=== PATIENT | female | born 1995 | race African-American/Black ===

== ENCOUNTER 2018-08-10 18:59 | Emergency (ER) | payer BC, OTHER ==
[~2018-08-10] VITALS: Ht 160 cm; Wt 107.0 kg
--- NOTE | 2018-08-10 19:21 | ED Abdominal Pain ---
General Chief Complaint: Head/Cervical Problems Stated Complaint: FATIGUE, ABD PAIN, BACK PAIN, NAUSEA, HEADACHE Source of Information: Patient, Family, RN Notes Reviewed Exam Limitations: No Limitations History of Present Illness Date Seen by Provider: Aug 10, 2018 Time Seen by Provider: 19:20 Initial Comments Patient presents c/ several complaints including SALDAÑA, nausea, low back pain, and fatigue x 2 months. Reportedly seen in an UC yesterday and had a UA and UCG checked that were both negative. States she has been thirsty and urinating a lot. No known fever. ? F.H. of DM on father's side. Timing/Duration: Other (2 months now) Severity/Quality: Moderate, Aching Location: Other (lower back) Radiation: No Radiation Activities at Onset: Other (unknown) Modifying Factors: Improves With Other (none) Associated Symptoms: Fatigue, Other (nausea; SALDAÑA) Allergies and Home Medications Allergies Coded Allergies: No Known Drug Allergies (Unverified , 08/10/18) Patient Home Medication List Home Medication List Reviewed: Yes Review of Systems Review of Systems Constitutional: see HPI, malaise Gastrointestinal: See HPI, Nausea Musculoskeletal: see HPI, back pain (lower) Psychiatric/Neurological: See HPI, Headache Endocrine: See HPI, Increased Thrist, Increased Urine All Other Systems Reviewed Negative Unless Noted: Yes Past Wwnhqbt-Fwkvig-Catnmp Hx Patient Social History Recent Foreign Travel: No Contact w/Someone Who Travel: No Physical Exam Vital Signs Vital Signs - First Documented 08/10/18 19:15 Temp 98.6 Pulse 93 Resp 14 B/P (MAP) 135/65 (88) Pulse Ox 100 O2 Delivery Room Air Capillary Refill : Height/Weight/BMI Height: '" Weight: lbs. oz. kg; BMI Method: General Appearance: WD/WN, no apparent distress, obese Respiratory: no respiratory distress Cardiovascular: regular rate, rhythm Rectal: deferred Neurologic/Psychiatric: alert, normal mood/affect, oriented x 3 Skin: warm/dry Progress/Results/Core Measures Results/Orders Lab Results Laboratory Tests Test 08/10/18 19:30 08/10/18 19:35 Range/Units White Blood Count 11.0 4.3-11.0 10^3/uL Red Blood Count 4.13 L 4.35-5.85 10^6/uL Hemoglobin 10.5 L 11.5-16.0 G/DL Hematocrit 34 L 35-52 % Mean Corpuscular Volume 82 80-99 FL Mean Corpuscular Hemoglobin 25 25-34 PG Mean Corpuscular Hemoglobin Concent 31 L 32-36 G/DL Red Cell Distribution Width 14.0 10.0-14.5 % Platelet Count 337 130-400 10^3/uL Mean Platelet Volume 8.3 7.4-10.4 FL Neutrophils (%) (Auto) 68 42-75 % Lymphocytes (%) (Auto) 26 12-44 % Monocytes (%) (Auto) 6 0-12 % Eosinophils (%) (Auto) 0 0-10 % Basophils (%) (Auto) 0 0-10 % Neutrophils # (Auto) 7.5 1.8-7.8 X 10^3 Lymphocytes # (Auto) 2.8 1.0-4.0 X 10^3 Monocytes # (Auto) 0.6 0.0-1.0 X 10^3 Eosinophils # (Auto) 0.0 0.0-0.3 10^3/uL Basophils # (Auto) 0.0 0.0-0.1 10^3/uL Sodium Level 144 135-145 MMOL/L Potassium Level 3.3 L 3.6-5.0 MMOL/L Chloride Level 107 98-107 MMOL/L Carbon Dioxide Level 23 21-32 MMOL/L Anion Gap 14 5-14 MMOL/L Blood Urea Nitrogen 16 7-18 MG/DL Creatinine 0.87 0.60-1.30 MG/DL Estimat Glomerular Filtration Rate > 60 BUN/Creatinine Ratio 18 Glucose Level 121 H 70-105 MG/DL Calcium Level 9.2 8.5-10.1 MG/DL Corrected Calcium 9.3 8.5-10.1 MG/DL Total Bilirubin 0.4 0.1-1.0 MG/DL Aspartate Amino Transf (AST/SGOT) 14 5-34 U/L Alanine Aminotransferase (ALT/SGPT) 9 0-55 U/L Alkaline Phosphatase 52 40-136 U/L Total Protein 7.2 6.4-8.2 GM/DL Albumin 3.9 3.2-4.5 GM/DL Lipase 27 8-78 U/L Urine Color YELLOW Urine Clarity CLOUDY H Urine pH 6.0 5-9 Urine Specific Ashby >=1.030 1.016-1.022 Urine Protein NEGATIVE NEGATIVE Urine Glucose (UA) NEGATIVE NEGATIVE Urine Ketones TRACE H NEGATIVE Urine Nitrite NEGATIVE NEGATIVE Urine Bilirubin NEGATIVE NEGATIVE Urine Urobilinogen 0.2 NORMAL MG/DL Urine Leukocyte Esterase NEGATIVE NEGATIVE Urine RBC (Auto) 1+ H NEGATIVE Urine RBC 0-2 /HPF Urine WBC NONE /HPF Urine Squamous Epithelial Cells RARE /HPF Urine Crystals NA /LPF Urine Amorphous Sediment LARGE TONY URATES H /LPF Urine Bacteria NEGATIVE /HPF Urine Casts NONE /LPF Urine Mucus NEGATIVE /LPF Urine Culture Indicated NO Urine Test NEGATIVE NEGATIVE My Orders Orders - MICK HANEY DO Cbc With Automated Diff (08/10/18 19:25) Comprehensive Metabolic Panel (08/10/18 19:25) Ua Culture If Indicated (08/10/18 19:25) Lipase (08/10/18 19:31) Hcg,Qualitative Urine (08/10/18 19:31) Thyroid Stimulating Hormone (08/10/18 19:30) Ua Culture If Indicated (08/10/18 20:47) Ct Abd/Pelvis Wo(Kidney Stone) (08/10/18 21:05) Hemoglobin A1c (08/10/18 21:29) Potassium Chloride (Tablet) (K Dur Table (08/10/18 22:00) Magnesium Citrate Oral Soln (Citrate Of (08/10/18 22:15) Medications Given in ED Current Medications Medications Dose Ordered Sig/Rhea Route Start Time Stop Time Status Last Admin Dose Admin Magnesium Citrate 300 ml ONCE ONCE PO 08/10/18 22:15 08/10/18 22:16 DC 08/10/18 22:12 300 ML Potassium Chloride 40 meq ONCE ONCE PO 08/10/18 22:00 08/10/18 22:01 DC 08/10/18 22:12 40 MEQ Vital Signs/I&O 08/10/18 08/10/18 19:15 22:17 Temp 98.6 Pulse 93 90 Resp 14 15 B/P (MAP) 135/65 (88) 128/62 (84) Pulse Ox 100 98 O2 Delivery Room Air Room Air Departure Impression Primary Impression: Headache Additional Impressions: Fatigue Anemia Hyperglycemia Hypokalemia Constipation Disposition: 01 HOME, SELF-CARE Condition: Stable Departure-Patient Inst. Decision time for Depature: 21:54 Referrals: NO,LOCAL PHYSICIAN (PCP) Primary Care Physician Patient Instructions: Anemia Caused by Low Iron, Adult (DC), Prediabetes (DC), Fatigue, Hypokalemia Add. Discharge Instructions: All discharge instructions reviewed with patient and/or family. Voiced understanding. KEEP PCP APPOINTMENT FOR TUESDAY. HAVE THEM CHECK YOUR YOU HEMOGLOBULIN A1C AND TSH RESULTS. BEGIN IRON EVERY OTHER DAY. NEED TO DRINK A LOT MORE WATER. MICK HANEY DO Aug 10, 2018 19:21
[2018-08-10 19:45] LABS: BASOPHILS % (AUTO) 0 % (0-10); EOSINOPHILS % (AUTO) 0 % (0-10); HEMATOCRIT 34 % (35-52); HEMOGLOBIN 10.5 G/DL (11.5-16.0); LYMPHOCYTES % (AUTO) 26 % (12-44); MEAN CORPUSCULAR HEMOGLOBIN 25 PG (25-34); MEAN CORPUSCULAR HGB CONC 31 G/DL (32-36); MEAN CORPUSCULAR VOLUME 82 FL (80-99); MEAN PLATELET VOLUME 8.3 FL (7.4-10.4); MONOCYTES % (AUTO) 6 % (0-12); NEUTROPHILS # (AUTO) 7.5 X 10^3 (1.8-7.8); NEUTROPHILS % (AUTO) 68 % (42-75); PLATELET COUNT 337 10^3/uL (130-400)
[2018-08-10 19:46] LABS: LYMPHOCYTES # (AUTO) 2.8 X 10^3 (1.0-4.0); MONOCYTES # (AUTO) 0.6 X 10^3 (0.0-1.0)
[2018-08-10 20:07] LABS: SODIUM 144 MMOL/L (135-145)
[2018-08-10 20:08] LABS: ALANINE AMINOTRANSFERASE 9 U/L (0-55); ALBUMIN 3.9 GM/DL (3.2-4.5); ALKALINE PHOSPHATASE 52 U/L (40-136); BILIRUBIN,TOTAL 0.4 MG/DL (0.1-1.0); BUN/CREATININE RATIO 18; CALCIUM 9.2 MG/DL (8.5-10.1); CARBON DIOXIDE 23 MMOL/L (21-32); CHLORIDE 107 MMOL/L (98-107); CREATININE SERUM 0.87 MG/DL (0.60-1.30); GFR ESTIMATED > 60; GLUCOSE 121 MG/DL (70-105); POTASSIUM 3.3 MMOL/L (3.6-5.0); TOTAL PROTEIN 7.2 GM/DL (6.4-8.2)
[2018-08-10 20:09] LABS: LIPASE 27 U/L (8-78)
--- OUTSIDE RECORDS SUMMARY | 2018-08-10 20:26 | XMS REPORT ---
Author Author SHILPA EMY Organization [facility] Address [address] [place] [address] Care Team Providers Care Nursing [facility] Tutor Name Role Phone EMY MASSEY Unavailable PROBLEMS Type Condition ICD9-CM Code [id number] Code Onset Dates Condition Status SNOMED Code Problem Prediabetes R73.09 Active 107767371 Problem Anxiety F41.9 Active 81946438 Problem Gastroesophageal reflux disease with esophagitis K21.0 Active 808475464 Problem Urticaria L50.9 Active 606737052 Problem Morbid (severe) obesity due to excess calories E66.01 Active 255919753 Problem Iron deficiency anemia, unspecified iron deficiency anemia type D50.9 Active 80728509 Problem Routine health maintenance Z00.00 Active 003229561 ALLERGIES No Known Allergies SOCIAL HISTORY Never Assessed PLAN OF CARE Activity Details Follow Up 4 Weeks Reason:weight management VITAL SIGNS Height 5'3" in 2016-09-17 Weight 246.6 lbs 2016-09-17 Temperature 97.7 degrees Fahrenheit 2016-09-17 Heart Rate 82 bpm 2016-09-17 Respiratory Rate 20 2016-09-17 BMI 43.68 kg/m2 2016-09-17 Blood pressure systolic 121 mmHg 2016-09-17 Blood pressure diastolic 77 mmHg 2016-09-17 MEDICATIONS Medication Instructions Dosage Frequency Start Date End Date Duration Status Vistaril 50 mg Orally Once a day at bedtime 1 capsule August, 30 days Active Diethylpropion HCl ER 75 MG Orally Once a day 1 tablet 24h August, Sep, 30 days Active Ferrous Sulfate 325 (65 Fe) MG Orally twice a day 1 tablet 12h August, Active Ibuprofen 200 MG Orally every 6 hrs 1 tablet as needed 6h Active Esomeprazole Magnesium 20 MG Orally Once a day 1 capsule 24h August, 30 day(s) Active RESULTS No Results PROCEDURES No Known procedures IMMUNIZATIONS No Known Immunizations
--- OUTSIDE RECORDS SUMMARY | 2018-08-10 20:26 | XMS REPORT ---
Author Author SHILPACHUYEMY Organization [facility] Address [address] [place] [address] Care Team Providers Care Drywall Installer Name Role Phone EMY MASSEY Unavailable PROBLEMS Type Condition ICD9-CM Code [id number] Code Onset Dates Condition Status SNOMED Code Problem Morbid (severe) obesity due to excess calories E66.01 Active 239268199 Problem Prediabetes R73.09 Active 800434675 Problem Seasonal allergic rhinitis due to pollen J30.1 Active 97949499 Problem Anxiety F41.9 Active 22056944 Problem Routine health maintenance Z00.00 Active 655926169 Problem Urticaria L50.9 Active 706150532 Problem Gastroesophageal reflux disease with esophagitis K21.0 Active 518078468 Problem Iron deficiency anemia, unspecified iron deficiency anemia type D50.9 Active 98522050 ALLERGIES No Information ENCOUNTERS Encounter Location Date Diagnosis [place] [id number] [place] [address] Jun, [facility] [id number] [place] [address]06- 655[address] Jun, [facility] [id number] [place] [address] 77057- 8677 Jun, [facility] [id number] [place] [address] 68363- 8666 Jun, [facility] [id number] [place] [address] 86766- 3931 Jun, Gastroesophageal reflux disease with esophagitis K21.0 ; BMI 40.0-44.9, adult Z68.41 ; Urticaria L50.9 and Seasonal allergic rhinitis due to pollen J30.1 [facility] [id number] [place] [address] 81541- 1185 Jun, [place] [id number], [place] [address] Sep, Morbid (severe) obesity due to excess calories E66.01 and Anxiety F41.9 [place] [address], [place] [address] August, Gastroesophageal reflux disease with esophagitis K21.0 ; Urticaria L50.9 and Morbid (severe) obesity due to excess calories E66.01 [place] [address], [place] [address] Jul, Routine health maintenance Z00.00 ; Prediabetes R73.09 ; Iron deficiency anemia, unspecified iron deficiency anemia type D50.9 and Morbid (severe) obesity due to excess calories E66.01 [place] [address], [place] [address] August, Prediabetes R73.09 ; Routine health maintenance Z00.00 ; Body mass index (BMI) of 45.0-49.9 in adult Z68.42 ; Morbid (severe) obesity due to excess calories E66.01 ; Iron deficiency anemia, unspecified iron deficiency anemia type D50.9 and Urticaria L50.9 [place] [address], [place] [address] August, Fatigue R53.[address] [place] [address]- [address] August, Fatigue R53.83 IMMUNIZATIONS No Known Immunizations SOCIAL HISTORY Never Assessed REASON FOR VISIT Lab results PLAN OF CARE VITAL SIGNS MEDICATIONS Unknown Medications RESULTS No Results PROCEDURES No Known procedures INSTRUCTIONS MEDICATIONS ADMINISTERED No Known Medications
--- OUTSIDE RECORDS SUMMARY | 2018-08-10 20:26 | XMS REPORT ---
Author Author SHILPACHUYEMY Organization [facility] Address [address] [place] [address] Care Team Providers Care Mine Wirer Name Role Phone EMY MASSEY Unavailable PROBLEMS Type Condition ICD9-CM Code [id number] Code Onset Dates Condition Status SNOMED Code Problem Morbid (severe) obesity due to excess calories E66.01 Active 653096297 Problem Prediabetes R73.09 Active 131961693 Problem Seasonal allergic rhinitis due to pollen J30.1 Active 72056600 Problem Anxiety F41.9 Active 80129112 Problem Routine health maintenance Z00.00 Active 546079896 Problem Urticaria L50.9 Active 631936905 Problem Gastroesophageal reflux disease with esophagitis K21.0 Active 935299091 Problem Iron deficiency anemia, unspecified iron deficiency anemia type D50.9 Active 15240193 ALLERGIES No Information ENCOUNTERS Encounter Location Date Diagnosis [place] [id number] [place] [address]199- [address] Jun, [facility] [id number] [place] [address] 00064- 2104 Jun, [facility] [id number] [place] [address] 18923- 3437 Jun, [facility] [id number] [place] [address] 32120- 5859 Jun, [facility] [id number] [place] [address] 23795- 7829 Jun, Gastroesophageal reflux disease with esophagitis K21.0 ; BMI 40.0-44.9, adult Z68.41 ; Urticaria L50.9 and Seasonal allergic rhinitis due to pollen J30.1 [facility] [id number] [place] [address] 18552- [address] Jun, [place] [id number] [address] Sep, Morbid (severe) obesity due to excess calories E66.01 and Anxiety F41.9 [place] [address], [place] [address] August, Gastroesophageal reflux disease with esophagitis K21.0 ; Urticaria L50.9 and Morbid (severe) obesity due to excess calories E66.01 [place] [address], [place] [address] Jul, Routine health maintenance Z00.00 ; Prediabetes R73.09 ; Iron deficiency anemia, unspecified iron deficiency anemia type D50.9 and Morbid (severe) obesity due to excess calories E66.01 [place] [address], [place] [address] August, Prediabetes R73.09 ; Routine health maintenance Z00.00 ; Body mass index (BMI) of 45.0-49.9 in adult Z68.42 ; Morbid (severe) obesity due to excess calories E66.01 ; Iron deficiency anemia, unspecified iron deficiency anemia type D50.9 and Urticaria L50.9 [place] [address], [place] [address] August, Fatigue R53.83 [address] [place] [address] 90902- 36[address] August, Fatigue R53.83 IMMUNIZATIONS No Known Immunizations SOCIAL HISTORY Never Assessed REASON FOR VISIT Lab results PLAN OF CARE VITAL SIGNS MEDICATIONS Unknown Medications RESULTS No Results PROCEDURES No Known procedures INSTRUCTIONS MEDICATIONS ADMINISTERED No Known Medications
--- OUTSIDE RECORDS SUMMARY | 2018-08-10 20:26 | XMS REPORT ---
Author Author SHILPACHUYEMY Organization [facility] Address [address] [place] [address] Care Team Providers Care Goodyear Stitcher Name Role Phone EMY MASSEY Unavailable PROBLEMS Type Condition ICD9-CM Code GGH87-[id number] Code Onset Dates Condition Status SNOMED Code Problem Morbid (severe) obesity due to excess calories E66.01 Active 041539196 Problem Prediabetes R73.09 Active 174098343 Problem Seasonal allergic rhinitis due to pollen J30.1 Active 93211355 Problem Anxiety F41.9 Active 47307480 Problem Routine health maintenance Z00.00 Active 107479977 Problem Urticaria L50.9 Active 502548506 Problem Gastroesophageal reflux disease with esophagitis K21.0 Active 626857674 Problem Iron deficiency anemia, unspecified iron deficiency anemia type D50.9 Active 89476013 ALLERGIES No Information ENCOUNTERS Encounter Location Date Diagnosis [place] [id number] [place] [address]859- 47[address] Jun, [facility] [id number] [place] [address] 41508- 3804 Jun, [facility] [id number] [place] [address] 88606- 3996 Jun, [facility] [id number] [place] [address] 00901- 1909 Jun, [facility] [id number] [place] [address] 03863- 8330 Jun, Gastroesophageal reflux disease with esophagitis K21.0 ; BMI 40.0-44.9, adult Z68.41 ; Urticaria L50.9 and Seasonal allergic rhinitis due to pollen J30.1 [facility] [id number] [place] [address] 26311- 0361 Jun, [place] [id number], [place] [address] Sep, Morbid (severe) obesity due to excess calories E66.01 and Anxiety F41.9 [place] [address], [place] [address] August, Gastroesophageal reflux disease with esophagitis K21.0 ; Urticaria L50.9 and Morbid (severe) obesity due to excess calories E66.01 [place] [address], [place] [address] Jul, Routine health maintenance Z00.00 ; Prediabetes R73.09 ; Iron deficiency anemia, unspecified iron deficiency anemia type D50.9 and Morbid (severe) obesity due to excess calories E66.01 [place] [address], [place] [address] August, Prediabetes R73.09 ; Routine health maintenance Z00.00 ; Body mass index (BMI) of 45.0-49.9 in adult Z68.42 ; Morbid (severe) obesity due to excess calories E66.01 ; Iron deficiency anemia, unspecified iron deficiency anemia type D50.9 and Urticaria L50.9 [place] [address], [place] [address] August, Fatigue R53.83 [address] [place] [address] 81981- 4278 August, Fatigue R53.83 IMMUNIZATIONS No Known Immunizations SOCIAL HISTORY Never Assessed REASON FOR VISIT labs PLAN OF CARE VITAL SIGNS MEDICATIONS Unknown Medications RESULTS No Results PROCEDURES No Known procedures INSTRUCTIONS MEDICATIONS ADMINISTERED No Known Medications
--- OUTSIDE RECORDS SUMMARY | 2018-08-10 20:26 | XMS REPORT | Continuity of Care Document ---
Author Organization Unknown Address Unknown Allergies There is no data. Medications There is no data. Problems There is no data. Procedures There is no data. Results There is no data. Encounters ACCT No. Visit Date/Time Discharge Status Pt. Type Provider Facility Loc./Unit Complaint [id number] 08/09/2018 17:50:00 [facility] Outpatient [facility]
--- OUTSIDE RECORDS SUMMARY | 2018-08-10 20:26 | XMS REPORT ---
Author Author SHILPACHUYEMY Organization [facility] Address [address] [place] [address] Care Team Providers Care Evs Manager Name Role Phone EMY MASSEY Unavailable PROBLEMS Type Condition ICD9-CM Code UFG37-GM Code Onset Dates Condition Status SNOMED Code Problem Morbid (severe) obesity due to excess calories E66.01 Active 311057070 Problem Prediabetes R73.09 Active 588558001 Problem Seasonal allergic rhinitis due to pollen J30.1 Active 42655974 Problem Anxiety F41.9 Active 36373638 Problem Routine health maintenance Z00.00 Active 606131498 Problem Urticaria L50.9 Active 284018082 Problem Gastroesophageal reflux disease with esophagitis K21.0 Active 628337386 Problem Iron deficiency anemia, unspecified iron deficiency anemia type D50.9 Active 96082516 ALLERGIES No Information ENCOUNTERS Encounter Location Date Diagnosis [place] [id number] [place] [address]- 1305 Jun, [facility] [id number] [place] [address] 93034- 6550 Jun, [facility] [id number] [place] [address] 60317- 9370 Jun, [facility] [id number] [place] [address] 79652- 7478 Jun, [facility] [id number] [place] [address] 47949- 3838 Jun, Gastroesophageal reflux disease with esophagitis K21.0 ; BMI 40.0-44.9, adult Z68.41 ; Urticaria L50.9 and Seasonal allergic rhinitis due to pollen J30.1 [facility] [id number] [place] [address] 26814- 5200 Jun, [place] [id number], [place] [address] Sep, Morbid (severe) obesity due to excess calories E66.01 and Anxiety F41.9 [place] [address], [place] [address] August, Gastroesophageal reflux disease with esophagitis K21.0 ; Urticaria L50.9 and Morbid (severe) obesity due to excess calories E66.01 [place] [address], [place] [address] Jul, Routine health maintenance Z00.00 ; Prediabetes R73.09 ; Iron deficiency anemia, unspecified iron deficiency anemia type D50.9 and Morbid (severe) obesity due to excess calories E66.01 [place] [address], [place] [address] 8697 August, Prediabetes R73.09 ; Routine health maintenance Z00.00 ; Body mass index (BMI) of 45.0-49.9 in adult Z68.42 ; Morbid (severe) obesity due to excess calories E66.01 ; Iron deficiency anemia, unspecified iron deficiency anemia type D50.9 and Urticaria L50.9 [place] [address], [place] [address]- [address] August, Fatigue R53.83 [address] [place] [address] 02187- 1727 August, Fatigue R53.83 IMMUNIZATIONS No Known Immunizations SOCIAL HISTORY Never Assessed REASON FOR VISIT Lab results PLAN OF CARE VITAL SIGNS MEDICATIONS Unknown Medications RESULTS No Results PROCEDURES No Known procedures INSTRUCTIONS MEDICATIONS ADMINISTERED No Known Medications
--- OUTSIDE RECORDS SUMMARY | 2018-08-10 20:26 | XMS REPORT ---
Author Author SHILPACHUYEMY Organization [facility] Address [address] [place] [address] Care Team Providers Care Php Website Developer Name Role Phone EMY MASSEY Unavailable PROBLEMS Type Condition ICD9-CM Code CEM25-LW Code Onset Dates Condition Status SNOMED Code Problem Morbid (severe) obesity due to excess calories E66.01 Active 280957884 Problem Prediabetes R73.09 Active 955315951 Problem Seasonal allergic rhinitis due to pollen J30.1 Active 91368192 Problem Anxiety F41.9 Active 52593103 Problem Routine health maintenance Z00.00 Active 333778576 Problem Urticaria L50.9 Active 840909601 Problem Gastroesophageal reflux disease with esophagitis K21.0 Active 336418828 Problem Iron deficiency anemia, unspecified iron deficiency anemia type D50.9 Active 18342047 ALLERGIES No Known Allergies ENCOUNTERS Encounter Location Date Diagnosis [place] [id number] [address] Jun, [facility] [address] [id number] [place] [phone] Jun, [place] [address] [place] [id number] [place] [phone] Jun, [facility] [id number] [place] [address] Jun, [place] [address] [place] [id number] [place] [address] Jun, Gastroesophageal reflux disease with esophagitis K21.0 ; BMI 40.0-44.9, adult Z68.41 ; Urticaria L50.9 and Seasonal allergic rhinitis due to pollen J30.1 [facility] [address] [address] Jun, [place] [address] [address] Sep, Morbid (severe) obesity due to excess calories E66.01 and Anxiety F41.9 [place] [address] [address] August, Gastroesophageal reflux disease with esophagitis K21.0 ; Urticaria L50.9 and Morbid (severe) obesity due to excess calories E66.01 [place] [address] [address] Jul, Routine health maintenance Z00.00 ; Prediabetes R73.09 ; Iron deficiency anemia, unspecified iron deficiency anemia type D50.9 and Morbid (severe) obesity due to excess calories E66.01 [place] [id number] [place] [address] August, Prediabetes R73.09 ; Routine health maintenance Z00.00 ; Body mass index (BMI) of 45.0-49.9 in adult Z68.42 ; Morbid (severe) obesity due to excess calories E66.01 ; Iron deficiency anemia, unspecified iron deficiency anemia type D50.9 and Urticaria L50.9 [place] [address] [address] August, Fatigue R53.83 [id number] [place] [address] August, Fatigue R53.83 IMMUNIZATIONS No Known Immunizations SOCIAL HISTORY Never Assessed REASON FOR VISIT Weight management. SUMMER [place], Itching to hands bilaterally., Congestion for months. PLAN OF CARE Activity Details Follow Up 3 Months Reason:CHM/GERD VITAL SIGNS Height 5'3" in 2017-07-14 Weight 236 lbs 2017-07-14 Temperature 98.1 degrees Fahrenheit 2017-07-14 Heart Rate 95 bpm 2017-07-14 Respiratory Rate 20 2017-07-14 BMI 41.80 kg/m2 2017-07-14 Blood pressure systolic 112 mmHg 2017-07-14 Blood pressure diastolic 80 mmHg 2017-07-14 MEDICATIONS Medication Instructions Dosage Frequency Start Date End Date Duration Status Ibuprofen 200 MG Orally every 6 hrs 1 tablet as needed 6h Not- Taking Vistaril 50 mg Orally Once a day at bedtime 1 capsule August, 30 days Active Esomeprazole Magnesium 20 MG Orally Once a day 1 capsule 24h August, Active Ferrous Sulfate 325 (65 Fe) MG Orally twice a day 1 tablet 12h August, Active Fluticasone Propionate 50 MCG/ACT Nasally Once a day 1 spray in each nostril 24h Jun, 30 day(s) Active Melatonin 5 MG Orally Once a day 1 tablet at bedtime as needed with food 24h Not-Taking Diethylpropion HCl ER 75 MG Orally Once a day 1 tablet 24h August, 30 days Active Cetirizine HCl 10 mg Orally Once a day 1 tablet 24h Jun, Sep, 90 days Active RESULTS No Results PROCEDURES No Known procedures INSTRUCTIONS MEDICATIONS ADMINISTERED No Known Medications
[2018-08-10 20:51] LABS: BILIRUBIN,URINE NEGATIVE (NEGATIVE); CLARITY,URINE CLOUDY; COLOR,URINE YELLOW; GLUCOSE, URINE (UA) NEGATIVE (NEGATIVE); KETONES,URINE TRACE (NEGATIVE); NITRITE,URINE NEGATIVE (NEGATIVE); PROTEIN,URINE NEGATIVE (NEGATIVE); UROBILINOGEN,URINE 0.2 MG/DL (NORMAL)
[2018-08-10 20:52] LABS: LEUKOCYTE ESTERASE ,URINE NEGATIVE (NEGATIVE)
[2018-08-10 20:54] LABS: BACTERIA,URINE NEGATIVE /HPF; RBC,URINE 0-2 /HPF; SQUAMOUS EPITHELIAL CELL,UR RARE /HPF
[2018-08-10 20:55] LABS: AMORPHOUS SEDIMENT,UR LARGE AMOR URATES /LPF
--- NOTE | 2018-08-10 21:40 | Diagnostic Imaging Report ---
PROCEDURE: CT urinary tract, rule out kidney stone. TECHNIQUE: Multiple contiguous axial images were obtained through the abdomen and pelvis without the use of intravenous contrast. Auto Exposure Controls were utilized during the CT exam to meet ALARA standards for radiation dose reduction. INDICATION: Bilateral flank and pelvic pain with hematuria. The patient had a negative urinalysis earlier today. FINDINGS: The lung bases are clear. Liver, gallbladder, spleen, pancreas, adrenal glands and kidneys appear normal. There is normal appearance of the appendix. Some calcifications are present in the pelvis consistent with phleboliths. Uterus appears unremarkable. A small adnexal cyst is present. There is no free fluid. Colon demonstrates slightly increased stool. No obstruction is present. The stomach is distended with air, food substance and liquids. Small bowel appears normal. No vascular calcifications are present. Osseous structures are normal. IMPRESSION: 1. Stomach is distended with fluid and foodstuff. This could be due to poor gastric motility, recent ingestion or outlet obstruction. 2. Mildly increased stool throughout. 3. No cause for the patient's hematuria is identified. Dictated by: Dictated on workstation # [id number]
[2018-08-10] MEDS ORDERED: BISACODYL 5 MG (DULCOLAX) TABLET PO ONE (22:00)
[2018-08-10] MEDS ORDERED: KCL 20 MEQ TAB (K-DUR) PO ONE (22:00)
[2018-08-10] MEDS ORDERED: MAGNESIUM CITRATE 300 ML BTL PO ONE (22:15)
[2018-08-10] MEDS ORDERED: MILK OF MAGNESIA 400 MG/5 ML 30 ML UDC PO ONE (22:15)
[2018-08-10 22:17] VITALS: BP 128/62
== END 2018-08-10 22:17 | disposition home or self-care (01) ==
LOC: ER FS 19:02
DX: R51 Headache (principal); R53.83 Other fatigue; D64.9 Anemia, unspecified; R73.9 Hyperglycemia, unspecified; E87.6 Hypokalemia; K59.00 Constipation, unspecified
CPT/HCPCS: 36415; 74176; 80053; 81000; 83036; 83690; 84443; 84703; 85025

== ENCOUNTER 2018-11-29 23:10 | Emergency (ER) | payer SELFPAY ==
[~2018-11-29] VITALS: Ht 160 cm; Wt 108.9 kg
--- OUTSIDE RECORDS SUMMARY | 2018-11-29 23:17 | XMS REPORT | Continuity of Care Document ---
Author Organization Unknown Address Unknown Phone Unavailable Allergies There is no data. Medications There is no data. Problems There is no data. Procedures There is no data. Results Test Result Range SUREPATH PAP RFX HPV mRNA E6/E7 - 07/06/18 17:08 CLINICAL INFORMATION: NRG LMP: 06/21/2018 NRG PREV. PAP: NRG PREV. BX: NRG SOURCE: Endocervix NRG STATEMENT OF ADEQUACY: NRG INTERPRETATION/RESULT: NRG NEIGHBORHOOD AIDE: NRG REVIEW NEIGHBORHOOD AIDE: NRG COMMENT NRG Encounters ACCT No. Visit Date/Time Discharge Status Pt. Type Provider Facility Loc./Unit Complaint [id number] 08/14/2018 15:00:00 08/14/2018 23:59:59 CLS Outpatient PHILL LOPEZ L[facility] [id number] 07/06/2018 16:00:00 Document Registration
--- NOTE | 2018-11-29 23:38 | ED Abdominal Pain ---
General Chief Complaint: Abdominal/GI Problems Stated Complaint: ABD PAIN,DIARRHEA Source of Information: Patient Exam Limitations: No Limitations History of Present Illness Date Seen by Provider: Nov 29, 2018 Time Seen by Provider: 23:20 Initial Comments The patient is a pleasant 22-year-old female who presents for evaluation of some abdominal cramping discomfort as well as some diarrhea which started today. She reports that the pain is coming and going and is crampy in nature and nonfocal. She says yesterday she picked some mushrooms and that no one else ate that food. She denies rectal bleeding, hematemesis, back or flank pain, chest pain or shortness of breath, pelvic pain/bleeding/discharge, urinary symptoms, or vomiting. She is alert and oriented 4, calm, appears to be in no distress. She states that between the episodes of the cramping discomfort she feels fine. Upon arrival in the emergency department she states that she feels fine. She denies any past surgical abdominal history. She does report increased flatulence today as well. Timing/Duration: 1 Day Severity/Quality: Moderate Location: Generalized Abdomen Radiation: No Radiation Activities at Onset: None Associated Symptoms: Denies Symptoms Allergies and Home Medications Allergies Coded Allergies: No Known Drug Allergies (Unverified , 08/10/18) Home Medications Dicyclomine HCl 20 Mg Tablet, 20 MG PO Q6H PRN for ABDOMINAL PAIN Prescribed by: AN MCCOY on 11/30/18 0025 Patient Home Medication List Home Medication List Reviewed: Yes Review of Systems Review of Systems Constitutional: no symptoms reported EENTM: No Symptoms Reported Respiratory: No Symptoms Reported Cardiovascular: No Symptoms Reported Gastrointestinal: Abdominal Pain, Diarrhea Genitourinary: No Symptoms Reported Musculoskeletal: no symptoms reported Skin: no symptoms reported Psychiatric/Neurological: No Symptoms Reported Endocrine: No Symptoms Reported Hematologic/Lymphatic: No Symptoms Reported All Other Systems Reviewed Negative Unless Noted: Yes Past [id number]-[id number]-Aoudtv Hx Past Med/Social Hx: Reviewed Nursing Past Med/Soc Hx Patient Social History Alcohol Use: Denies Use Recreational Drug Use: No Smoking Status: Never a Smoker 2nd Hand Smoke Exposure: No Recent Foreign Travel: No Contact w/Someone Who Travel: No Recent Hopitalizations: No Physical Abuse: No Sexual Abuse: No Mistreated: No Seasonal Allergies Seasonal Allergies: No Past Medical History Surgeries: No Respiratory: No Cardiac: No Neurological: No Genitourinary: No Gastrointestinal: No Musculoskeletal: No Endocrine: No HEENT: No Cancer: No Psychosocial: No Integumentary: No Blood Disorders: No Physical Exam Vital Signs Vital Signs - First Documented 11/29/18 23:17 Temp 97.8 Pulse 94 Resp 18 B/P (MAP) 135/82 (99) Pulse Ox 97 O2 Delivery Room Air Capillary Refill : Height/Weight/BMI Height: 5'3.00" Weight: 236lbs. oz. 107.996302bg; BMI Method:Stated General Appearance: WD/WN, no apparent distress (smiling, calm, appears comfortable) HEENT: PERRL/EOMI, pharynx normal Neck: non-tender, full range of motion, supple Respiratory: chest non-tender, lungs clear, normal breath sounds, no accessory muscle use Cardiovascular: regular rate, rhythm, no edema Gastrointestinal: normal bowel sounds, non tender (obese, benign abdominal examination), soft, no organomegaly, no pulsatile mass Extremities: non-tender, no pedal edema, no calf tenderness Back: normal inspection, no CVA tenderness, no vertebral tenderness Neurologic/Psychiatric: 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, no motor/sensory deficits, alert, normal mood/affect, oriented x 3 Skin: normal color, warm/dry Lymphatic: no adenopathy Progress/Results/Core Measures Results/Orders Lab Results Laboratory Tests Test 11/29/18 23:35 11/29/18 23:45 Range/Units White Blood Count 5.8 4.3-11.0 10^3/uL Red Blood Count 4.15 L 4.35-5.85 10^6/uL Hemoglobin 10.7 L 11.5-16.0 G/DL Hematocrit 34 L 35-52 % Mean Corpuscular Volume 83 80-99 FL Mean Corpuscular Hemoglobin 26 25-34 PG Mean Corpuscular Hemoglobin Concent 31 L 32-36 G/DL Red Cell Distribution Width 14.2 10.0-14.5 % Platelet Count 353 130-400 10^3/uL Mean Platelet Volume 8.8 7.4-10.4 FL Neutrophils (%) (Auto) 59 42-75 % Lymphocytes (%) (Auto) 32 12-44 % Monocytes (%) (Auto) 8 0-12 % Eosinophils (%) (Auto) 1 0-10 % Basophils (%) (Auto) 0 0-10 % Neutrophils # (Auto) 3.4 1.8-7.8 X 10^3 Lymphocytes # (Auto) 1.8 1.0-4.0 X 10^3 Monocytes # (Auto) 0.5 0.0-1.0 X 10^3 Eosinophils # (Auto) 0.0 0.0-0.3 10^3/uL Basophils # (Auto) 0.0 0.0-0.1 10^3/uL Sodium Level 138 135-145 MMOL/L Potassium Level 3.6 3.6-5.0 MMOL/L Chloride Level 101 98-107 MMOL/L Carbon Dioxide Level 23 21-32 MMOL/L Anion Gap 14 5-14 MMOL/L Blood Urea Nitrogen 17 7-18 MG/DL Creatinine 0.98 0.60-1.30 MG/DL Estimat Glomerular Filtration Rate > 60 BUN/Creatinine Ratio 17 Glucose Level 93 70-105 MG/DL Calcium Level 8.9 8.5-10.1 MG/DL Corrected Calcium 9.0 8.5-10.1 MG/DL Total Bilirubin 0.4 0.1-1.0 MG/DL Aspartate Amino Transf (AST/SGOT) 17 5-34 U/L Alanine Aminotransferase (ALT/SGPT) 10 0-55 U/L Alkaline Phosphatase 55 40-136 U/L Total Protein 7.3 6.4-8.2 GM/DL Albumin 3.9 3.2-4.5 GM/DL Lipase 30 8-78 U/L Urine Color YELLOW Urine Clarity CLEAR Urine pH 6.5 5-9 Urine Specific [place] 1.020 1.016-1.022 Urine Protein NEGATIVE NEGATIVE Urine Glucose (UA) NEGATIVE NEGATIVE Urine Ketones NEGATIVE NEGATIVE Urine Nitrite NEGATIVE NEGATIVE Urine Bilirubin NEGATIVE NEGATIVE Urine Urobilinogen 0.2 NORMAL MG/DL Urine Leukocyte Esterase NEGATIVE NEGATIVE Urine RBC (Auto) 2+ H NEGATIVE Urine RBC 10-25 H /HPF Urine WBC 0-2 /HPF Urine Squamous Epithelial Cells 5-10 /HPF Urine Crystals NONE /LPF Urine Bacteria TRACE /HPF Urine Casts NONE /LPF Urine Mucus LARGE H /LPF Urine Culture Indicated NO Urine Test NEGATIVE NEGATIVE My Orders Orders - AN MCCOY DO Comprehensive Metabolic Panel (11/29/18 23:31) Lipase (11/29/18 23:31) Ua Culture If Indicated (11/29/18 23:31) Ed Iv/Invasive Line Start (11/29/18 23:31) Cbc With Automated Diff (11/29/18 23:31) Hcg,Qualitative Urine (11/29/18 23:31) Ns Iv 1000 Ml (Sodium Chloride 0.9%) (11/29/18 23:45) Ketorolac Injection (Toradol Injection) (11/29/18 23:45) Dicyclomine Injection (Bentyl Injection) (11/29/18 23:45) Medications Given in ED Current Medications Medications Dose Ordered Sig/Rhea Route Start Time Stop Time Status Last Admin Dose Admin Dicyclomine HCl 20 mg ONCE ONCE IM 11/29/18 23:45 11/29/18 23:46 DC 11/29/18 23:55 20 MG Ketorolac Tromethamine 30 mg ONCE ONCE IVP 11/29/18 23:45 11/29/18 23:46 DC 11/29/18 23:55 30 MG Vital Signs/I&O 11/29/18 23:17 Temp 97.8 Pulse 94 Resp 18 B/P (MAP) 135/82 (99) Pulse Ox 97 O2 Delivery Room Air Progress Progress Note : Progress Note @0025 - patient updated on lab results which are acutely unremarkable. She appears comfortable and continues to have a benign abdominal examination. Advised patient to take the prescribed Bentyl as directed and to follow-up with her PCP in the next 1-2 days. Advised her to return to the emergency Department immediately for new or worsening symptoms. She is stable for discharge. Workup today fails to reveal any emergent pathology. Departure Impression Primary Impression: Diarrhea Additional Impression: Abdominal cramping Disposition: 01 HOME, SELF-CARE Condition: Stable Departure-Patient Inst. Decision time for Depature: 00:20 Referrals: NO,LOCAL PHYSICIAN (PCP/Family) Primary Care Physician Patient Instructions: Diarrhea in Adolescents and Adults, Viral Gastroenteritis, Adult (DC) Add. Discharge Instructions: Take the prescribed medication as directed. Return to the ER for new or worsening symptoms. Follow-up with your doctor in the next 1-2 days. Scripts Dicyclomine HCl (Dicyclomine HCl) 20 Mg Tablet 20 MG PO Q6H PRN for ABDOMINAL PAIN for 5 Days, #20 TAB Prov: AN MCCOY DO 11/30/18 AN MCCOY DO Nov 29, 2018 23:38
[2018-11-29 23:45] LABS: HEMATOCRIT 34 % (35-52); HEMOGLOBIN 10.7 G/DL (11.5-16.0); MEAN CORPUSCULAR HEMOGLOBIN 26 PG (25-34); MEAN CORPUSCULAR HGB CONC 31 G/DL (32-36); MEAN CORPUSCULAR VOLUME 83 FL (80-99); MEAN PLATELET VOLUME 8.8 FL (7.4-10.4); NEUTROPHILS % (AUTO) 59 % (42-75); PLATELET COUNT 353 10^3/uL (130-400); RED CELL DISTRIBUTION WIDTH 14.2 % (10.0-14.5); WHITE BLOOD COUNT 5.8 10^3/uL (4.3-11.0)
[2018-11-29] MEDS ORDERED: DICYCLOMINE 10 MG/ML (BENTYL) 2 ML AMP IM ONE (23:45)
[2018-11-29] MEDS ORDERED: KETOROLAC 30 MG/ML VIAL IVP ONE (23:45)
[2018-11-29] MEDS ORDERED: NS IV 1000 ML 1,000 ML IV SCH (23:45)
[2018-11-29 23:48] LABS: BASOPHILS % (AUTO) 0 % (0-10); EOSINOPHILS % (AUTO) 1 % (0-10); LYMPHOCYTES % (AUTO) 32 % (12-44); MONOCYTES % (AUTO) 8 % (0-12); NEUTROPHILS # (AUTO) 3.4 X 10^3 (1.8-7.8)
[2018-11-29 23:49] LABS: LYMPHOCYTES # (AUTO) 1.8 X 10^3 (1.0-4.0); MONOCYTES # (AUTO) 0.5 X 10^3 (0.0-1.0)
[2018-11-30 00:03] LABS: BACTERIA,URINE TRACE /HPF; BILIRUBIN,URINE NEGATIVE (NEGATIVE); CLARITY,URINE CLEAR; COLOR,URINE YELLOW; GLUCOSE, URINE (UA) NEGATIVE (NEGATIVE); KETONES,URINE NEGATIVE (NEGATIVE); LEUKOCYTE ESTERASE ,URINE NEGATIVE (NEGATIVE); NITRITE,URINE NEGATIVE (NEGATIVE); PH,URINE 6.5 (5-9); PROTEIN,URINE NEGATIVE (NEGATIVE); UROBILINOGEN,URINE 0.2 MG/DL (NORMAL); WBC,URINE 0-2 /HPF
[2018-11-30 00:13] LABS: BUN/CREATININE RATIO 17; CARBON DIOXIDE 23 MMOL/L (21-32); CHLORIDE 101 MMOL/L (98-107); CREATININE SERUM 0.98 MG/DL (0.60-1.30); GFR ESTIMATED > 60; GLUCOSE 93 MG/DL (70-105); POTASSIUM 3.6 MMOL/L (3.6-5.0); SODIUM 138 MMOL/L (135-145)
[2018-11-30 00:14] LABS: ALANINE AMINOTRANSFERASE 10 U/L (0-55); ALBUMIN 3.9 GM/DL (3.2-4.5); ALKALINE PHOSPHATASE 55 U/L (40-136); BILIRUBIN,TOTAL 0.4 MG/DL (0.1-1.0); CALCIUM 8.9 MG/DL (8.5-10.1); LIPASE 30 U/L (8-78); TOTAL PROTEIN 7.3 GM/DL (6.4-8.2)
[2018-11-30] MEDS ORDERED: DICY20TA10 PO (00:25)
[2018-11-30 00:42] VITALS: BP 126/72
== END 2018-11-30 00:44 | disposition home or self-care (01) ==
LOC: EDUNIT# 23:10 → ER FS 23:12
DX: R19.7 Diarrhea, unspecified (principal)
CPT/HCPCS: 36415; 80053; 81000; 83690; 84703; 85025; 96372; 96374

== ENCOUNTER 2021-03-03 13:09 | Emergency (ER) | payer BC ==
[~2021-03-03] VITALS: Ht 160 cm; Wt 114.2 kg
[~2021-03-03 13:09] MED LIST: DICY20TA10 PO
[2021-03-03 13:52] LABS: BASOPHILS % (AUTO) 0 % (0-10); EOSINOPHILS # (AUTO) 0.1 10^3/uL (0.0-0.3); EOSINOPHILS % (AUTO) 1 % (0-10); HEMATOCRIT 37 % (35-52); HEMOGLOBIN 11.6 g/dL (11.5-16.0); LYMPHOCYTES # (AUTO) 2.8 10^3/uL (1.0-4.0); LYMPHOCYTES % (AUTO) 47 % (12-44); MEAN CORPUSCULAR HEMOGLOBIN 26 pg (25-34); MEAN CORPUSCULAR HGB CONC 32 g/dL (32-36); MEAN CORPUSCULAR VOLUME 83 fL (80-99); MEAN PLATELET VOLUME 8.5 fL (9.0-12.2); MONOCYTES # (AUTO) 0.4 10^3/uL (0.0-1.0); MONOCYTES % (AUTO) 7 % (0-12); NEUTROPHILS # (AUTO) 2.8 10^3/uL (1.8-7.8); NEUTROPHILS % (AUTO) 45 % (42-75); PLATELET COUNT 364 10^3/uL (130-400); WHITE BLOOD COUNT 6.1 10^3/uL (4.3-11.0)
[2021-03-03 14:05] LABS: PROTHROMBIN TIME PATIENT 13.9 SEC (12.2-14.7)
[2021-03-03 14:06] LABS: ALBUMIN 4.1 GM/DL (3.2-4.5); BILIRUBIN,TOTAL 0.5 MG/DL (0.1-1.0); CREATININE SERUM 0.78 MG/DL (0.60-1.30); POTASSIUM 3.7 MMOL/L (3.6-5.0); TOTAL PROTEIN 7.7 GM/DL (6.4-8.2)
--- NOTE | 2021-03-03 14:07 | ED Headache ---
General Chief Complaint: Eye Problems Stated Complaint: L EYE SWELLING Nursing Triage Note: states tuesday she began having peripheral blurriness in the left eye. with associated headache. Source: patient, family ((mom)) Exam Limitations: no limitations History of Present Illness Date Seen by Provider: Mar 03, 2021 Time Seen by Provider: 13:50 Initial Comments Patient is a 25-year-old female who presents to the emergency department today with a chief complaint of left-sided frontal headache, sinus congestion and blurry visual gaines in the left lower quadrant of her vision onset sometime last week around . Patient states that she called Dr. MCCORD's office today for an appointment to evaluate her vision and he did visual testing and found papilledema bilaterally. She was sent to the emergency department for further work-up of this. Patient states nothing really makes her headache any better or any worse. She has never had a headache quite like this before. She has been quite congested especially on the left side of her nose. No fevers or chills, shortness of breath or cough. No nausea, vomiting or diarrhea. No GI or complaints. She does not take any daily medications. Family history is pertinent for some glaucoma in grandparents. Mom wears glasses. Mom states that she was told that she was possibly "prediabetic" a couple of years ago. She has intermittently taken some ibuprofen but states it has not helped. She is using Flonase nasal spray. She denies problems with balance or coordination. No unilateral numbness, weakness or tingling. All other review of systems reviewed and negative except as stated. Timing/Duration: 1 week ((6 days)) Severity/Quality: mild, constant Location: frontal (left frontal) Prior Headaches/Recent Trauma: no recent headache/trauma, occasional headaches Associated Symptoms: nasal congestion (left more than right) Allergies and Home Medications Allergies Coded Allergies: No Known Drug Allergies (Unverified , 08/10/18) Patient Home Medication List Home Medication List Reviewed: Yes Dicyclomine HCl (Dicyclomine HCl) 20 Mg Tablet, 20 MG PO Q6H PRN for ABDOMINAL PAIN Prescribed by: AN MCCOY on 11/30/18 0025 Review of Systems Review of Systems Constitutional: see HPI Eyes: Blurred Vision (left lower visual field), Photophobia ((since her eyes were dilated)) Ears, Nose, Mouth, Throat: nose discharge (left more than right) Respiratory: no symptoms reported Cardiovascular: no symptoms reported Gastrointestinal: no symptoms reported Genitourinary: no symptoms reported : No Musculoskeletal: no symptoms reported Skin: no symptoms reported Psychiatric/Neurological: Headache (left frontal) All Other Systems Reviewed Negative Unless Noted: Yes Past Rnsaizt-Soxskc-Gldegh Hx Patient Social History Tobacco Use?: No Use of E-Cig and/or Vaping dev: No Substance use?: No Alcohol Use?: No Pt feels they are or have been: No Immunizations Up To Date Influenza Vaccine Up-to-Date: No; Not Current First/Initial COVID19 Vaccinat: february 03 2021 COVID19 Vaccine [employer]: [employer] Seasonal Allergies Seasonal Allergies: No Past Medical History Surgeries: No Respiratory: No Cardiac: No Neurological: No Last Menstrual Period: Feb 02, 2021 Genitourinary: No Gastrointestinal: No Musculoskeletal: No Endocrine: No HEENT: No Cancer: No Psychosocial: No Integumentary: No Blood Disorders: No Physical Exam Vital Signs Vital Signs - First Documented 03/03/21 13:38 Temp 36.3 Pulse 86 Resp 18 B/P (MAP) 126/86 (99) Pulse Ox 100 O2 Delivery Room Air Capillary Refill : Less Than 3 Seconds Height, Weight, BMI Height: 5'3.00" Weight: 240lbs. oz. [id number]; 44.00 BMI Method:Stated General Appearance: WD/WN, no apparent distress HEENT: normal ENT inspection (nasal turbinates are congested bilat, left greater than right), TMs normal, other (Pupils dilated by Optometry ESTATE ATTORNEY, not very reactive at this time; EOM's intact; sclera clear bilaterally) Neck: non-tender, full range of motion, supple, normal inspection Cardiovascular: regular rate, rhythm Respiratory: lungs clear, normal breath sounds, no respiratory distress, no accessory muscle use Gastrointestinal: soft Extremities: normal range of motion, non-tender, normal inspection, no pedal edema, no calf tenderness Psychiatric: alert, oriented x 3 Crainal Nerves: normal hearing, normal speech, PERRL Coordination/Gait: normal finger to nose, normal gait (also normal heel to toe walking; no balance or coordination issues) Motor/Sensory: no motor deficit, no sensory deficit, no pronator drift Skin: normal color, warm/dry Progress/Results/Core Measures Results/Orders Lab Results Laboratory Tests Test 03/03/21 13:30 Range/Units White Blood Count 6.1 4.3-11.0 10^3/uL Red Blood Count 4.45 3.80-5.11 10^6/uL Hemoglobin 11.6 11.5-16.0 g/dL Hematocrit 37 35-52 % Mean Corpuscular Volume 83 80-99 fL Mean Corpuscular Hemoglobin 26 25-34 pg Mean Corpuscular Hemoglobin Concent 32 32-36 g/dL Red Cell Distribution Width 13.5 10.0-14.5 % Platelet Count 364 130-400 10^3/uL Mean Platelet Volume 8.5 L 9.0-12.2 fL Immature Granulocyte % (Auto) 0 % Neutrophils (%) (Auto) 45 42-75 % Lymphocytes (%) (Auto) 47 H 12-44 % Monocytes (%) (Auto) 7 0-12 % Eosinophils (%) (Auto) 1 0-10 % Basophils (%) (Auto) 0 0-10 % Neutrophils # (Auto) 2.8 1.8-7.8 10^3/uL Lymphocytes # (Auto) 2.8 1.0-4.0 10^3/uL Monocytes # (Auto) 0.4 0.0-1.0 10^3/uL Eosinophils # (Auto) 0.1 0.0-0.3 10^3/uL Basophils # (Auto) 0.0 0.0-0.1 10^3/uL Immature Granulocyte # (Auto) 0.0 0.0-0.1 10^3/uL Prothrombin Time 13.9 12.2-14.7 SEC INR Comment 1.0 0.8-1.4 Sodium Level 137 135-145 MMOL/L Potassium Level 3.7 3.6-5.0 MMOL/L Chloride Level 105 98-107 MMOL/L Carbon Dioxide Level 22 21-32 MMOL/L Anion Gap 10 5-14 MMOL/L Blood Urea Nitrogen 9 7-18 MG/DL Creatinine 0.78 0.60-1.30 MG/DL Estimat Glomerular Filtration Rate 109 BUN/Creatinine Ratio 12 Glucose Level 81 70-105 MG/DL Calcium Level 9.0 8.5-10.1 MG/DL Corrected Calcium 8.9 8.5-10.1 MG/DL Total Bilirubin 0.5 0.1-1.0 MG/DL Aspartate Amino Transf (AST/SGOT) 22 5-34 U/L Alanine Aminotransferase (ALT/SGPT) 10 0-55 U/L Alkaline Phosphatase 53 40-136 U/L Total Protein 7.7 6.4-8.2 GM/DL Albumin 4.1 3.2-4.5 GM/DL Serum Test, Qualitative NEGATIVE NEGATIVE Vital Signs/I&O 03/03/21 13:38 Temp 36.3 Pulse 86 Resp 18 B/P (MAP) 126/86 (99) Pulse Ox 100 O2 Delivery Room Air Blood Pressure Mean: 99 Progress Progress Note #1: Time: 14:07 Progress Note Patient currently reporting her headache pain at a "1 or 2" and declines pain medication at this time. Progress Note #2: Time: 15:14 Progress Note Communicated the results of labs and imaging studies with the patient. Advised her she would need to follow-up with a primary care physician as well as have an MRI of the brain to further evaluate for possible Chiari malformation. I gave her good return precautions including if she has worsening vision changes, balance or gait changes, worsening headache that she needs to come back to the emergency department. I discussed with her the need for follow-up with neurology/neurosurgery. She verbalizes understanding. She did consent to having some IV Toradol for her headache. I strongly encouraged her to follow-up sooner rather than later. Her mother is at the bedside and also verbalizes understanding of the discharge instructions, is agreeable. All questions are sought and answered. Patient is stable for discharge. Diagnostic Imaging Diagonstic Imaging: CT Comments [facility] [place], [place] NAME: JOSELINE MENDOZA [facility] REC#: [id number] PT STATUS: REG ER : 1995 PHYSICIAN: BINA REEVES APRN ADMIT DATE: 03/03/21/ER Draft Date of Exam:03/03/21 CT HEAD WO EXAMINATION: CT brain without contrast, 03/03/2021. TECHNIQUE: Multiple contiguous axial images were obtained through the brain without the use of intravenous contrast. Auto Exposure Controls were utilized during the CT exam to meet ALARA standards for radiation dose reduction. INDICATION: Peripheral blurry vision from the left eye since Tuesday with headaches. FINDINGS: There is no acute hemorrhage or infarct. There is no mass, mass effect, or midline shift. There is no hydrocephalus. There is questionable crowding at the foramen magnum which raises the question of a Chiari I type malformation. This is better characterized with a dedicated MRI of the cervical spine or brain. The calvarium is intact. The paranasal sinuses and mastoid air cells are clear. IMPRESSION: 1. No acute intracranial process appreciated. 2. Mild crowding is questioned at the foramen magnum raising the question of a Chiari type I malformation. See above discussion. This could be further characterized non-emergently with an MRI of the brain which could also provide greater sensitivity in evaluation of the intracranial structures if patient's symptoms persist. Dictated on workstation # [id number] Dict: 03/03/21 1445 Trans: 03/03/21 1451 [id number] Interpreted by: TAMIA VALDOVINOS MD Electronically signed by: Departure Impression Primary Impression: Headache above the eye region Additional Impression: Blurred vision, left eye Disposition: 01 HOME, SELF-CARE Condition: Stable Departure-Patient Inst. Decision time for Depature: 15:15 Referrals: NO,LOCAL PHYSICIAN (PCP/Family) Primary Care Physician Patient Instructions: LOCAL PHYSICIAN LIST Add. Discharge Instructions: Use [id number] ibuprofen, 600 mg which is 3 tablets of generic ibuprofen every 6-8 hours with food as needed for headache. Please follow-up with a primary care physician this week, call for an appointment so that you can get an MRI ordered to further evaluate the abnormality on your CAT scan. If you develop worsening headache, blurry vision is worse, vomiting or any other emergent concerning symptoms please do not hesitate to come back to the emergency room for reevaluation. KAMAR SCOTT MD Mar 03, 2021 14:07
--- NOTE | 2021-03-03 14:51 | Diagnostic Imaging Report ---
EXAMINATION: CT brain without contrast, 03/03/2021. TECHNIQUE: Multiple contiguous axial images were obtained through the brain without the use of intravenous contrast. Auto Exposure Controls were utilized during the CT exam to meet ALARA standards for radiation dose reduction. INDICATION: Peripheral blurry vision from the left eye since Tuesday with headaches. FINDINGS: There is no acute hemorrhage or infarct. There is no mass, mass effect, or midline shift. There is no hydrocephalus. There is questionable crowding at the foramen magnum which raises the question of a Chiari I type malformation. This is better characterized with a dedicated MRI of the cervical spine or brain. The calvarium is intact. The paranasal sinuses and mastoid air cells are clear. IMPRESSION: 1. No acute intracranial process appreciated. 2. Mild crowding is questioned at the foramen magnum raising the question of a Chiari type I malformation. See above discussion. This could be further characterized non-emergently with an MRI of the brain which could also provide greater sensitivity in evaluation of the intracranial structures if patient's symptoms persist. Dictated by: Dictated on workstation # [id number]
[2021-03-03] MEDS ORDERED: KETOROLAC 30 MG/ML VIAL IVP ONE (15:30)
[2021-03-03 15:33] VITALS: BP 124/80
== END 2021-03-03 15:35 | disposition home or self-care (01) ==
LOC: EDUNIT# 13:09 → ER 13:11
DX: H53.8 Other visual disturbances (principal)
CPT/HCPCS: 36415; 70450; 80053; 84703; 85025; 85610

== ENCOUNTER → 2021-03-09 | Outpatient (CLI) | payer BC ==
[~2021-03-09] MED LIST changes: +GADOTERATE 0.5 MMOL/ML (CLARISCAN) 20 ML VIAL IV ONE
--- NOTE | 2021-03-09 14:41 | Diagnostic Imaging Report ---
PROCEDURE: MR imaging of the brain with and without contrast. TECHNIQUE: Multiplanar, multisequence MR imaging of the brain was performed with and without contrast. INDICATION: Left eye blurriness. COMPARISON: 03/03/2021. FINDINGS: No acute ischemia, mass, or hemorrhage. Focal T2 hyperintense signal seen in the periventricular white matter in the left parietal region. Associated enhancement is seen with this area measuring 0.6 cm. Ventricles, cortical sulci, and basilar cisterns are symmetric and unremarkable. The sellar and suprasellar regions have a normal appearance. No acute abnormalities are seen in the globes and orbits. No abnormal enhancement or T2 hyperintense signal along the course of the optic nerves. The extraocular muscles are symmetric and unremarkable. No post septal inflammatory changes are seen. The brainstem and posterior fossa are unremarkable. Small mucous retention cyst is seen in the left maxillary sinus. Otherwise, the paranasal sinuses and mastoid air cells demonstrate normal signal characteristics. The scalp and calvarium have a normal appearance. IMPRESSION: 1. Focal T2 hyperintense signal in the periventricular white matter of the left parietal lobe with associated contrast enhancement. Findings are concerning for a focus of active demyelination. Recommend correlation with patient history and symptoms and CSF analysis to further evaluate. 2. No acute ischemia or hemorrhage. 3. Unremarkable appearance of the globes and orbits. No evidence of abnormal enhancement or orbital mass. Dictated by: Dictated on workstation # [id number]
== END ==
LOC: RAD 12:30
PROVIDERS: ATTEND Family Medicine
DX: H47.10 Unspecified papilledema (principal); H53.8 Other visual disturbances; R93.0 Abnormal findings on diagnostic imaging of skull and head, not elsewhere classified
CPT/HCPCS: 70553